=== PATIENT | male | born 1955 | race Caucasian/White ===

== ENCOUNTER → 2020-08-19 05:00 | Outpatient (CLI) | payer BC, SELFPAY ==
[2020-08-19 19:23] LABS: SARS-CoV-2 RNA PCR Negative
== END ==
PROVIDERS: PCP Family Medicine; Visit Provider Internal Medicine Gastroenterology
DX: Z01.812 Encounter for preprocedural laboratory examination (principal); Z20.822 Contact with and (suspected) exposure to COVID-19
CPT/HCPCS: C9803; U0003; U0005

== ENCOUNTER 2020-08-22 01:59 | Day surgery (SDC) | payer BC, SELFPAY ==
[2020-08-15 11:34] VITALS: BMI 30.7
[2020-08-22 07:11] VITALS: BP 131/82; PULSE 53; RESP 20; TEMP 36.3; O2SAT 100; BMI 30.3
[2020-08-22] MEDS: LACTATED RINGERS 1,000 ML 150 ML IV CONT (07:29)
--- NOTE | 2020-08-22 07:37 | WPDANESEPPF ---
Anes - Initial Pre Proc Eval Procedure: Operation Date: 08/22/20 08:15 Proposed Procedures p Colonoscopy - Jelani Martinez MD Date/Time: 08/22/20 07:37 Surgeon: Jelani Martinez MD Pre Op Diagnosis: blood in stool Patient Data Age: 65 Gender: M Height: 5 ft 11 in Weight: 98.6 kg Last Vital Signs Temp 97.3 F L 08/22/20 07:11 Pulse 53 L 08/22/20 07:11 Resp 20 08/22/20 07:11 BP 131/82 08/22/20 07:11 Pulse Ox 100 08/22/20 07:11 Allergies Allergy/AdvReac Type Severity Reaction Status Date / Time No Known Allergies Allergy Verified 08/22/20 07:09 Home Medications Medication Instructions Recorded Confirmed Type Adults Multivitamin 1 tab-cap PO DAILY 08/15/20 08/15/20 History ascorbic acid (vitamin C) 500 mg PO DAILY 08/15/20 08/15/20 History clopidogrel 75 mg PO DAILY 08/15/20 08/22/20 History losartan 100 mg PO DAILY 08/15/20 08/15/20 History metoprolol succinate 50 mg PO BID 08/15/20 08/22/20 History sildenafil (pulm.hypertension) 20 mg PO PRN PRN 08/15/20 08/15/20 History simvastatin 20 mg PO DAILY 08/15/20 08/15/20 History Patient hx anesthesia problems: none Family hx anesthesia problems: none PMFSH Past Medical History Medical History (Updated 08/22/20 @ 07:37 by Hank Ramos MD) CAD (coronary artery disease) Hyperlipidemia Surgical History Surgical History (Updated 08/22/20 @ 07:37 by Hank Ramos MD) Stented coronary artery Social History Social History (System 08/15/20 @ 12:22 by Sherry Martinez) Years smoked: 15 Smoking status: Former smoker Tobacco type: cigars Alcohol intake: current Drinks per week: 4 Substance use: never Substance use type: does not use Living arrangements: with family Spiritual care concerns: No Anes - Eval Final PreProcedure Day of Procedure 08/22/20 07:37 Patient weight: overweight Heart: bradycardia Lungs: clear to auscultation Airway: Mallampati scale class II Neurological: alert and oriented Last oral intake: >/= 8 hours ASA classification: III Emergent: no Anesthetic plan: proceed Anesthesia type and monitoring: general GIVS and standard monitoring Informed Consent: The patient's anesthetic plan and its attendant risks and benefits were discussed with the patient/family/POA. Questions were solicited and answers provided to the satisfaction of the patient/family/POA.
--- NOTE | 2020-08-22 08:09 | PM.HPGS ---
History of Present Illness History of Present Illness Consent: Risks, benefits, and alternatives have been discussed and questions answered. Patient agrees to proceed with procedure. Chief complaint: blood in stool Narrative: Levi Aaron Jr. is a 65 year old male who had BRBPR but now normal BM's, last colonoscopy 10 years ago. Review of Systems Constitutional: Constitutional: Denies headache(s) and Denies weakness Eyes: Eyes: Denies blurry vision ENT: Reports Normal hearing present, Denies headache(s) and Denies neck pain Cardiovascular: Cardiovascular: Denies chest pain and Denies dyspnea Respiratory: Respiratory: Denies dyspnea Gastrointestinal: Gastrointestinal: Reports no additional gastrointestinal complaints Genitourinary: Genitourinary: Denies dysuria Musculoskeletal: Musculoskeletal: Denies neck pain Integumentary/Breasts: Skin/Breast: Denies dry skin Neurologic: Reports Normal hearing present, Denies headache(s) and Denies weakness Psychiatric: Psychiatric: Denies anxiety Endocrine: Endocrine: Denies change in body appearance Hematologic/Lymphatic: Hematologic/Lymphatic: Denies easy bleeding Allergic/Immunologic: Allergic/Immunologic: Denies urticaria PMF Past Medical History Medical History (Updated 08/22/20 @ 08:10 by Jelani Martinez MD) Blood in stool CAD (coronary artery disease) Hyperlipidemia Surgical History Surgical History (Updated 08/22/20 @ 07:37 by Hank Ramos MD) Stented coronary artery Social History Social History (System 08/15/20 @ 12:22 by Sherry Martinez) Years smoked: 15 Smoking status: Former smoker Tobacco type: cigars Alcohol intake: current Drinks per week: 4 Substance use: never Substance use type: does not use Living arrangements: with family Spiritual care concerns: No Meds Home Medications and Allergies Home Medications Medication Instructions Recorded Confirmed Type Adults Multivitamin 1 tab-cap PO DAILY 08/15/20 08/15/20 History ascorbic acid (vitamin C) 500 mg PO DAILY 08/15/20 08/15/20 History clopidogrel 75 mg PO DAILY 08/15/20 08/22/20 History losartan 100 mg PO DAILY 08/15/20 08/15/20 History metoprolol succinate 50 mg PO BID 08/15/20 08/22/20 History sildenafil (pulm.hypertension) 20 mg PO PRN PRN 08/15/20 08/15/20 History simvastatin 20 mg PO DAILY 08/15/20 08/15/20 History Allergies Allergy/AdvReac Type Severity Reaction Status Date / Time No Known Allergies Allergy Verified 08/22/20 07:09 Vital Signs Vital Signs - 24 hr 08/22/20 07:11 Temperature 97.3 F L Pulse Rate 53 L Respiratory Rate 20 Blood Pressure 131/82 Pulse Oximetry 100 Exam Const: General: comfortable and no acute distress HENMT: General nose exam: Normal nares present Eyes: General: appearance normal, both eyes and all related structures Neck: Neck: no JVD Resp: Auscultation: clear to auscultation bilaterally Cardio: Rate: regular rate Rhythm: regular rhythm GI: Inspection: non-distended GI Palp: Yes Soft to palpation Skin: General skin exam: normal color Neuro: General: gait normal Speech: normal speech Extrem: General: normal to inspection Psych: Mental Status: mental status grossly normal Assessment and Plan Assessment and plan (1) Blood in stool: Code(s): K92.1 - Melena Status: Acute Assessment and Plan: colonoscopy
[2020-08-22 08:29] VITALS: BP 85/59; PULSE 56; RESP 21; O2SAT 94
[2020-08-22 08:39] VITALS: BP 95/71; PULSE 51; RESP 20; O2SAT 93
[2020-08-22 08:49] VITALS: BP 115/76; PULSE 50; RESP 20; O2SAT 96
== END 2020-08-22 09:00 | disposition home or self-care (01) ==
PROVIDERS: PCP Family Medicine; Visit Provider Internal Medicine Gastroenterology
PROC: 0DJD8ZZ Inspection of Lower Intestinal Tract, Via Natural or Artificial Opening Endoscopic (ICD-10-PCS; CPT 45378; principal; 2020-08-22 08:15)
DX: Z12.11 Encounter for screening for malignant neoplasm of colon (principal); K92.1 Melena; K64.8 Other hemorrhoids; I25.10 Atherosclerotic heart disease of native coronary artery without angina pectoris; E78.5 Hyperlipidemia, unspecified; Z79.02 Long term (current) use of antithrombotics/antiplatelets; Z95.5 Presence of coronary angioplasty implant and graft; Z87.891 Personal history of nicotine dependence
CPT/HCPCS: 45378; C9803; J2704; J7120; U0003; U0005

== ENCOUNTER 2021-07-31 06:25 | Observation (INO) | payer BC, SELFPAY ==
[2021-07-31] VITALS (14 sets, daily range): BP systolic 123–142; BP diastolic 77–92; PULSE 44–55; RESP 10–18; TEMP 36.3–37.1; O2SAT 97–100; BMI 31.1
--- NOTE | ~2021-07-31 | XR_ITS ---
EXAMINATION: XR chest 2V DATE: 07/31/2021 07:02 INDICATION: Chest pain TECHNIQUE: PA and lateral views of the chest were obtained. COMPARISON: Chest radiograph dated 09/25/11 FINDINGS: Linear suture line and minimal associated scarring at the right midlung zone. Calcified nodule at the right lung base and calcified right hilar lymph nodes consistent with old granulomatous disease. Mor e subtle nipple shadows project along the inferior margin of the bilateral anterior fifth ribs. No ne w airspace opacities, pulmonary edema, pleural effusion or pneumothorax. The cardiomediastinal silhou ette is normal. Mild thoracic spondylosis. Distal left clavicle resection. IMPRESSION: 1. No acute cardiopulmonary disease. Reviewed, dictated and finalized at location A.
--- NOTE | 2021-07-31 06:37 | ECG_ITS ---
Measurements Intervals [place] Rate: 43 P: 30 OK: 145 QRS: 4 QRSD: 104 T: 84 QT: 473 QTc: 400 Interpretive Statements SINUS BRADYCARDIA WITH NONCONDUCTED PAC NONSPECIFIC T-WAVE ABNORMALITY NO PREVIOUS ECG AVAILABLE FOR COMPARISON Electronically Signed On 07-31-2021 14:22:00 CDT by Jadon Lozano M.D.
[2021-07-31] MEDS: ASPIRIN 81 MG CHEWABLE TABLET 324 MG PO (06:41)
[2021-07-31 07:04] LABS: Basophils Absolute Auto 0.1 K/mm3 (0.0-0.1); Basophils Percent Auto 1.1 % (0.2-1.2); Eosinophils Absolute Auto 0.2 K/mm3 (0-0.3); Eosinophils Percent Auto 2.6 % (0-4.4); Hematocrit 41.8 % (42.0-52.0); Hemoglobin 14.7 g/dL (14.0-18.0); Immature Granulocyte Absolute 0.02 K/mm3 (0.00-0.031); Immature Granulocyte Percent A 0.3 % (0-0.5); Lymphocytes Absolute Auto 2.03 K/mm3 (0.9-3.2); Lymphocytes Percent Auto 27.3 % (18.3-44.2); Mean Corpuscular HGB Conc 35.2 g/dl (32-36); Mean Corpuscular Hemoglobin 30.4 pg (26-34); Mean Corpuscular Volume 86.4 fl (80-100); Mean Platelet Volume 9.7 fl (7.4-10.4); Monocytes Absolute Auto 0.7 K/mm3 (0.1-0.6); Monocytes Percent Auto 9.7 % (2.6-8.5); Neutrophils Absolute Auto 4.4 K/mm3 (1.3-6.7); Platelet Count Result 212 k/mm3 (150-375); Red Blood Count 4.84 M/mm3 (4.6-6.20); Red Cell Distribution Width 12.6 % (11.5-14.5); White Blood Count 7.4 K/mm3 (4.5-10.0)
[2021-07-31 07:13] LABS: Alanine Aminotransferase 25 U/L (4-50); Alkaline Phosphatase 59 U/L (38-126); Anion Gap 10 mmol/L (8-16); Aspartate Amino Transferase 29 U/L (17-59); Bilirubin,Total 1.3 mg/dL (0.2-1.3); Blood Urea Nitrogen 24 mg/dL (9-20); Calcium 8.8 mg/dL (8.4-10.2); Carbon Dioxide 23 mmol/L (22-30); Chloride 107 mmol/L (98-107); Estimated Glomerular Filt Rate > 60; Glucose 95 mg/dL (65-110); Lipase 146 U/L (23-300); Potassium 4.3 mmol/L (3.4-5.0); Sodium 140 mmol/L (137-145)
[2021-07-31 07:24] LABS: Troponin I < 0.012 ng/mL (0.000-0.034)
[2021-07-31 07:33] LABS: INR 1.2; Partial Thromboplastin Time 27.6 SECONDS (22.3-36.8); Prothrombin Time 14.3 Seconds (11.1-14.7)
--- NOTE | 2021-07-31 08:04 | ED.CHESTPAIN ---
HPI - Chest Pain General Chief Complaint: Chest Pain Stated Complaint: chest pain Time Seen by Provider: 07/31/21 07:01 Source: patient and RN notes reviewed Mode of arrival: ambulatory Limitations: no limitations History of Present Illness HPI narrative: This is a 66 year old male with history of CAD s/p stent, hypertension, and hyperlipidemia who presents for evaluation of left lateral chest pain. He developed left chest pain 2 to 3 am this morning, and it woke him up from his sleep. He states his pain does not radiate and at its maximum intensity he rates 2/10. He does report pain feels similar to when he had stents placed 13 years ago. He denies associated nausea, vomiting, cough, fever, sob or diaphoresis. He took nitroglycerin at home and it resolved his pain. His marine engine machinist is Dr. Anh Lee but she is retiring. He needs to establish care with new marine engine machinist. Related Data Home Medications Medication Instructions Recorded Confirmed Adults Multivitamin 1 tab-cap PO DAILY 08/15/20 07/31/21 ascorbic acid (vitamin C) 500 mg PO DAILY 08/15/20 07/31/21 clopidogrel 75 mg PO HS 08/15/20 07/31/21 losartan 100 mg PO DAILY 08/15/20 07/31/21 metoprolol succinate 50 mg PO Q12H 08/15/20 07/31/21 sildenafil (pulm.hypertension) 20 mg PO PRN PRN 08/15/20 07/31/21 simvastatin 20 mg PO HS 08/15/20 07/31/21 nitroglycerin 0.4 mg SUBLINGUAL Q5M PRN 07/31/21 07/31/21 omeprazole 20 mg PO EVERY OTHER DAY 07/31/21 07/31/21 Allergies Allergy/AdvReac Type Severity Reaction Status Date / Time No Known Allergies Allergy Verified 07/31/21 06:35 Review of Systems Review of Systems: All systems reviewed & are unremarkable except as noted in HPI and below PMFSH Past Medical History Medical History (Updated 07/31/21 @ 19:07 by Merline Reyes MD) CAD (coronary artery disease) HTN (hypertension), benign Hyperlipidemia SVT (supraventricular tachycardia) Surgical History Surgical History (Updated 07/31/21 @ 10:03 by Joshua Foley MD) Hx of arthroscopic knee surgery 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 Also smoked Cigars. Drinks 2-3 drinks per week. No hx of drug use. Lives at home with his . Nominates his to be the individual would make medical decisions for him if he is unable. He is a full code. Smoking packs per day: 1 Smoking cigarettes per day: 20.0 Years smoked: 10 Smoking pack-years: 10.00 Smoking status: Former smoker Tobacco type: cigarettes and cigars Additional smoking assessment comments: PT ALSO SMOKED 5-6 CIGARS/DAY Alcohol intake: current Drinks per week: 3 Substance use: never Substance use type: does not use Spiritual care concerns: No Exam Const: General: no acute distress and alert Orientation/consciousness: patient oriented x3 Eyes: EOM: EOMs intact bilaterally Chest: Chest palpation & inspection: normal inspection of the chest Resp: Effort & Inspection: normal respiratory effort and no retractions Auscultation: clear to auscultation bilaterally Cardio: Rate: regular rate Rhythm: regular rhythm Heart sounds: no murmurs GI: GI Palp: Yes Soft to palpation, No Tenderness to palpation present (GI) and No Guarding due to palpation present (GI) Auscultation: normal bowel sounds Neuro: General: patient oriented x3, moves all extremities and CN's II-XI intact bilaterally Psych: Menta
--- NOTE | 2021-07-31 09:42 | PM.IMHP ---
H&P: HPI History of Present Illness Date/Time: PATIENT IS ADMITTED UNDER OBSERVATION STATUS 07/31/21 09:42 Chief Complaint: Cheat pain Narrative: 66yo male with HTN, HLD and CAD here for chest pain. Around 2-3 a.m. this morning, patient was awakened by left-sided chest pain that he describes as ?pressure?. Pain did not worsen or improve but a few hours later he did take a nitroglycerin with slight benefit. He rates the pain 2/10. Chest pain is still present currently at 1/10. Denies any shortness of breath, nausea, vomiting or abdominal pain. No cough, fever or chills. The pain is not pleuritic or palpable. Does not radiate. He was working in the yard yesterday but did not do anything strenuous. His last stress test was negative about 2 years ago. He denies sleep apnea. He does snore but his is available and states that she has not seen any apneic spells. He has a history of coronary disease and had 5 stents placed over about a year in 2008 which was his last heart catheterization. He also has a history of SVT and sees an coal chemist for this. He had a athletic monitor about a year or so ago. He is aware that his heart rate runs low. This chest pain does feel very similar to the time he had chest pain when he was diagnosed with coronary disease requiring stents. Because of the persistent pain, patient presented to the emergency room for evaluation. In the Emergency room patient is bradycardic with the heart rate in the 40s. Blood pressure is 135/92. Chest x-ray was clear. Lab work was unrevealing. Troponin was negative. Lipase was normal. EKG showed sinus bradycardia rate of 43, PVC and ST T wave changes noted in the high lateral leads. Patient was given aspirin. He was admitted for further care. 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 Also smoked Cigars. Drinks 2-3 drinks per week. No hx of drug use. Lives at home with his . Nominates his to be the individual would make medical decisions for him if he is unable. He is a full code. Smoking packs per day: 1 Smoking cigarettes per day: 20.0 Years smoked: 10 Smoking pack-years: 10.00 Smoking status: Former smoker Tobacco type: cigarettes and cigars Additional smoking assessment comments: PT ALSO SMOKED 5-6 CIGARS/DAY Alcohol intake: current Drinks per week: 3 Substance use: never Substance use type: does not use Spiritual care concerns: No Meds Home Medications and Allergies Home Medications Medication Instructions Recorded Confirmed Type Adults Multivitamin 1 tab-cap PO DAILY 08/15/20 07/31/21 History ascorbic acid (vitamin C) 500 mg PO DAILY 08/15/20 07/31/21 History clopidogrel 75 mg PO HS 08/15/20 07/31/21 History losartan 100 mg PO DAILY 08/15/20 07/31/21 History metoprolol succinate 50 mg PO Q12H 08/15/20 07/31/21 History sildenafil (pulm.hypertension) 20 mg PO PRN PRN 08/15/20 07/31/21 History simvast
--- NOTE | 2021-07-31 10:05 | PC.NURSE ---
Fax SBAR sent to IMU at [phone] RN tried to call report was told would return this RN call RN called back on hold 4:36 minutes will attempt to call again.
[2021-07-31 10:11] LABS: Troponin I < 0.012 ng/mL (0.000-0.034)
--- NOTE | 2021-07-31 10:32 | ADMGEN ---
This patient, Levi Aaron Jr., was admitted to IMU Room 232-01. Patient/family oriented to hospital policies and general routines including ID bracelet, bed and alarms, visiting hours, pain management, procedures, bathroom and other care routines, personal items, smoking policy, room service/diet, and visiting hours. Information on how to activate the Rapid Response Team has been discussed. Patient/Family are encouraged to report perceived risks to care and to ask questions if they do not understand what they are told or what they should do.
[2021-07-31 13:04] LABS: Troponin I < 0.012 ng/mL (0.000-0.034)
--- NOTE | 2021-07-31 13:50 | PM.CNCAR ---
Assessment and Plan Additional Plan This is a 66-year-old man with a long history of coronary artery disease remote history of percutaneous revascularization also reports a history of symptomatic SVT which he treats with metoprolol and vagal maneuvers. The symptoms with which he presents are atypical left-sided inframammary and left lateral chest discomfort with no associated symptoms. Electrocardiogram shows no evidence of acute ischemia/injury and his troponin levels are normal x3 sets. In my opinion he is safe to be discharged for follow-up as an outpatient. His physician at [facility] is retiring but he does express a preference to continue to follow-up at that institution. As such we will not give him an appointment in our office here. He can be discharged from my perspective. Jadon Lozano MD [facility] History of Present Illness History of Present Illness Consult date/time: 07/31/21 13:50 Consult reason: chest pain Reason For Visit: Chest pain Narrative: This is a 66-year-old man who has coronary artery disease am seeing him in consultation this afternoon at the request of the hospitalist after he was admitted for observation/rule out ACS. He was in his usual state of good health when he was awakened at about 3:00 a.m. in the morning with some chest discomfort. He describes this as a dull aching sensation inferior and lateral to the left breast area. He did not describe any radiation of the symptoms any other location there was no associated shortness of breath diaphoresis nausea or vomiting. Because of his history of coronary disease he came to this hospital's emergency room where he was evaluated and admitted. His electrocardiogram does not show any acute ST or T-wave changes. He is in sinus bradycardia with occasional PVCs. His troponin levels were normal in the emergency room and have remained so x3 sets. Patient was sleeping very comfortably in bed when I awakened him to see him in consultation he offers no other complaints. 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 He plans on transitioning to 1 of her partners at that office. He also has been seeing 1 of the electrophysiologists over there in consultation because of supraventricular tachycardia. His PCP is here in [place]. Review of Systems Constitutional: Constitutional: Reports no additional constitutional complaints Eyes: Eyes: Reports no additional eye complaints ENT: Reports system reviewed and no additional complaints, except as documented Cardiovascular: Cardiovascular: Reports as per HPI Respiratory: Respiratory: Reports no additional respiratory complaints Gastrointestinal: Gastrointestinal: Reports no additional gastrointestinal complaints Musculoskeletal: Musculoskeletal: Reports no additional musculoskeletal complaints Integumentary/Breasts: Skin/Breast: Reports system reviewed and no additional complaints, except as docu Neurologic: Reports system reviewed and no additional complaints, except as documented Endocrine: Endocrine: Reports no additional endocrine complaints Hematologic/Lymphatic: Hematologic/Lymphatic: Reports no additional hematologic/lymphatic complaints Allergic/Immunologic: Allergic/Immunologic: Reports no additional allergic/immunologic complaints PMFSH Past Medical History Medical History (Updated 07/31/21 @ 10:06 by Joshua Foley MD) CAD (coronary artery disease) HTN (hypertension), benign Hyperlipidemia SVT (supraventricular tachycardia) Surgical History Surgical History (Updated 07/31/21 @ 10:03 by Joshua Foley MD) Hx of arthroscopic knee surgery 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
--- NOTE | 2021-07-31 16:23 | PM.DS ---
DS: Admitting Diagnosis Discharge Date 07/31/21 Admitting Diagnosis Chest pain DS: Discharge Diagnosis Discharge Diagnosis (1) Chest pain: Code(s): R07.9 - Chest pain, unspecified Status: Acute (2) Hyperlipidemia: Code(s): E78.5 - Hyperlipidemia, unspecified Status: Inactive (3) HTN (hypertension), benign: Code(s): I10 - Essential (primary) hypertension Status: Acute (4) SVT (supraventricular tachycardia): Code(s): I47.1 - Supraventricular tachycardia Status: Acute DS: Summary Hospital Course Reason for hospitalization: 66yo male with HTN, HLD and CAD here for chest pain. Please see H&P for details. Hospital Course: Patient presents to the emergency complaints of chest pain. In the Emergency room patient is bradycardic with the heart rate in the 40s. Blood pressure was 135/92. Chest x-ray was clear. Lab work was unrevealing. Troponin x 3 was negative. Lipase was normal. EKG showed sinus bradycardia rate of 43, PVC and ST T wave changes noted in the high lateral leads. Patient was given aspirin. He was admitted to the IMU for further care. Patient was seen by Cardiology. Cardiology felt the patient was safe for discharge and can follow up as an outpatient. No further inpatient testing was required. Patient had resolution of his symptoms. He overall did well and was able to be discharged home on 07/31/2021. Status at Discharge Cognitive/behavioral status at discharge: Stable Time Spent with Patient Time attestation: Total time spent providing and/or coordinating discharge services: 45 minutes Time spent: Greater than 30 minutes Exam Narrative: AF 98.2 115/76 50 20 96% ra Gen - well-nourished, well-developed male in no acute respiratory distress who is nontoxic-appearing lying semi recumbent in bed HEENT - normocephalic. Atraumatic. Pupils equal round and reactive. Extraocular motions intact. Sclera clear and anicteric. Nares patent. Oropharynx was clear. No oral lesions. Moist mucous membranes. Tongue was midline. Palate ravi symmetrically. No facial asymmetry. Neck - neck was supple. No dominant adenopathy, thyromegaly or masses. 2+ carotid upstrokes without bruits. Chest - lungs are clear to auscultation bilaterally. No wheezes or crackles. CV - heart was bradycardic and regular with occasional extra beat. S1-S2. No murmurs gallops or rubs. Abd - abdomen was soft. Nontender. Nondistended. Positive bowel sounds. No organomegaly or masses. Ext - no clubbing, cyanosis or edema. 2+ DP pulses bilaterally. Neuro - patient is alert and oriented x4. Strength is 5/5 in both upper and lower extremities. Cranial nerves 2-12 are intact. Speech is clear. Psych - normal mood and affect. Patient is pleasant and cooperative. Skin - warm and dry. No rashes noted. DS: Data Data Completed and Pending Labs on day of discharge: Labs from last 24 hours 07/31/21 07/31/21 07/31/21 12:33 09:42 06:54 WBC RBC Hgb Hct MCV MCH MCHC RDW Plt Count MPV Immature Gran % (Auto) Neut % (Auto) Lymph % (Auto) [place] % (Auto) Eos % (Auto) Baso % (Auto) Lymph # (Auto) [place] # (Auto) Eos # (Auto) Baso # (Auto) Abs Immat Gran (auto) Absolute Neuts (auto) Absolute Nucleated RBC Nucleated RBC % PT INR APTT Sodium 140 Potassium 4.3 Chloride 107 Carbon Dioxide 23 Anion Gap 10 BUN 24 H Creatinine 0.80 Estim Creat Clear Calc Not Reportable Estimated GFR > 60 Glucose 95 Calcium 8.8 Total Bilirubin 1.3 AST 29 ALT 25 Alkaline Phosphatase 59 Troponin I < 0.012 < 0.012 < 0.012 Total Protein 7.0 Albumin 4.0 Lipase 146 07/31/21 07/31/21 06:54 06:54 WBC 7.4 RBC 4.84 Hgb 14.7 Hct 41.8 L MCV 86.4 MCH 30.4 MCHC 35.2 RDW 12.6 Plt Count 212 MPV 9.7 Immature Gran % (Auto) 0.3 Neut
== END 2021-07-31 17:12 | disposition home or self-care (01) ==
LOC: ANHED 07:17 → ANHIMU 09:52
PROVIDERS: Emergency Medicine; Admitting Provider Internal Medicine; Emergency Provider General Practice; PCP Family Medicine; Visit Provider Internal Medicine
DX: R07.9 Chest pain, unspecified (principal); I25.10 Atherosclerotic heart disease of native coronary artery without angina pectoris; I10 Essential (primary) hypertension; E78.5 Hyperlipidemia, unspecified; I47.1 Supraventricular tachycardia; Z95.5 Presence of coronary angioplasty implant and graft; Z79.02 Long term (current) use of antithrombotics/antiplatelets; Z90.2 Acquired absence of lung [part of]; Z87.891 Personal history of nicotine dependence
CPT/HCPCS: 36415; 71046; 80053; 83690; 84484; 85025; 85610; 85730; 93005; 99285; A9270; G0378

== ENCOUNTER 2023-02-25 07:04 | Outpatient (CLI) | payer MEDICARE, OTHER, SELFPAY ==
--- NOTE | ~2023-02-25 | US_ITS ---
EXAMINATION: US aorta [facility] DATE: 02/25/2023 07:41 INDICATION: Abdominal aortic aneurysm screening in a former smoker TECHNIQUE: Grayscale, color Doppler, and pulsed Doppler images of the aorta and common iliac arteries were obtained. COMPARISON: None. FINDINGS: The proximal aorta measures 2.8 cm. The mid aorta measures 2.4 cm. The distal aorta measures 2.1 cm. The right common iliac artery measures 1.4 cm. The left common iliac artery measures 1.4 cm. IMPRESSION: 1. Normal caliber abdominal aorta. No aneurysm. Reviewed, dictated and finalized at location A.
== END 2023-02-25 07:05 | disposition home or self-care (01) ==
LOC: ANHIMG 07:06
PROVIDERS: PCP Family Medicine; Visit Provider Internal Medicine Cardiovascular Disease
DX: Z87.891 Personal history of nicotine dependence (principal)
CPT/HCPCS: 76706

== ENCOUNTER 2023-04-10 10:13 | Outpatient (CLI) | payer MEDICARE, OTHER, SELFPAY ==
--- NOTE | ~2023-04-10 | XR_ITS ---
EXAMINATION: XR hand LT min 3V INDICATION: Left hand pain TECHNIQUE: Three views of the left hand are obtained. COMPARISON: None available FINDINGS: Bone alignment is normal. There is no fracture. There is mild osteoarthritis of the triscap he and first carpometacarpal joints as well as in multiple interphalangeal joints. The soft tissues a re unremarkable. IMPRESSION: 1. Polyarticular osteoarthritis without acute osseous abnormality. Reviewed, dictated and finalized at location F. Y ROLLING MACHINE OPERATOR
== END 2023-04-10 10:14 | disposition home or self-care (01) ==
PROVIDERS: PCP Family Medicine; Visit Provider Plastic Surgery
DX: M18.12 Unilateral primary osteoarthritis of first carpometacarpal joint, left hand (principal); M19.042 Primary osteoarthritis, left hand
CPT/HCPCS: 73130

== ENCOUNTER 2023-08-06 08:37 | Outpatient (CLI) | payer MEDICARE, OTHER, SELFPAY | END 2023-08-06 08:38 | disposition home or self-care (01) | LOC: ANHAUDIO 08:37 | PROVIDERS: PCP Family Medicine; Visit Provider Physician Assistant | DX: H90.3 Sensorineural hearing loss, bilateral (principal) | CPT/HCPCS: 92557; 92567 ==

== ENCOUNTER 2023-10-08 08:48 | Outpatient (CLI) | payer MEDICARE, OTHER, SELFPAY ==
--- NOTE | 2023-10-21 15:45 | WPDSLEEPSTUD ---
Sleep Study Date of Study: 10/08/23 Ordering Provider: Rica Arriaga, COMMERCIAL CONSTRUCTION PROJECT MANAGER Interpreting Physician: Yumiko Cantrell DO Sleep Study Type: Polysomnogram Height: 1.8 m Weight: 92.986 kg Body Mass Index: 28.5 Neck Circumference (inches): 17 [place]: 1 Reason for Sleep Study Cardiac arrhythmia Sleep History The patient is a 68-year-old male with coronary artery disease, paroxysmal supraventricular tachycardia, hypertension, dyslipidemia, history of tobacco use and previously diagnosed sleep apnea in 08/2011 that had a sleep study ordered by his service desk specialist for evaluation of sleep apnea. He has not been wearing his mandibular device regularly. The patient denies awakening from sleep short of breath. He denies awakening at night with heartburn, belching or cough. He occasionally snores but is rarely loud enough others complain. He rarely has trouble sleeping when he has a cold. He denies waking up gasping for air throughout the night. He denies having breathing problems at night observed by himself or others. He denies sweating excessively at night. He frequently has heart palpitations or irregular heartbeats during the night. He denies falling asleep during the day and while driving. He denies sleep paralysis, cataplexy and hypnagogic / hypnopompic hallucinations. He denies having trouble at school or work due to sleepiness. He denies feeling afraid of going to sleep. He denies having nightmares. He occasionally remembers his dreams. He denies having thoughts racing through his mind. He denies feeling sad, depressed or anxious. He denies having muscular tension. He denies noticing parts of his body jerk. He denies kicking during the night. He denies having crawling and aching feelings in his legs and denies having leg pain during the night. He denies grinding his teeth during sleep and denies awakening with morning jaw pain. He is occasionally bothered by pain during the day but never awakened by pain during the night. He frequently wakes up feeling stiff in the morning. He denies waking up with sore or achy muscles. He denies waking up with pain in the neck, spine or other joints. He goes to bed at 10:00 p.m. on weekdays and between 9-10 p.m. on the weekends. He is able to fall asleep within 10 minutes. He will only wake up at night if he has episodes of SVT. He wakes up between 6-7 a.m. on weekdays and at 7:00 a.m. on the weekends. He typically gets 7 8 hours of sleep per night. He stays in bed less than 5 minutes after waking up in the morning. He currently lives with his . He denies consuming any caffeinated beverages within 2 hours of bedtime. He denies engaging in physical exercise before bedtime. He will watch television before falling asleep. He denies taking naps in afternoon or the evening. He consumes 1 cup of coffee in the morning. He quit smoking cigarettes 20 years ago. He will consume 3 oz of an alcoholic beverage a few times per week. He denies recreational drug use. 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
[2023-10-21 16:00] VITALS: BMI 28.5
== END 2023-10-09 07:11 | disposition home or self-care (01) ==
LOC: ANHCSM 08:49
PROVIDERS: PCP Family Medicine; Visit Provider Nurse Practitioner Adult Health
DX: F51.8 Other sleep disorders not due to a substance or known physiological condition (principal)
CPT/HCPCS: 95810

== ENCOUNTER 2024-09-03 00:54 | Day surgery (SDC) | payer MEDICARE, OTHER, SELFPAY ==
[2024-09-02 10:35] VITALS: BMI 29.3
[2024-09-03] VITALS (16 sets, daily range): BP systolic 113–144; BP diastolic 54–94; PULSE 43–55; RESP 12–22; TEMP 36.1; O2SAT 95–97; BMI 28.9
--- OUTSIDE RECORDS SUMMARY | 2024-09-03 00:59 | XMS_ITS | Referral Summary ---
Author Organization [facility] D Address [address] [place] [address] Care Team Providers Care Counter Tender Name Role Phone Cristino Nunez MD Primary Care Provider [phone] Encounters Date Type Department Care Team Description 08/20/2024 Telephone [facility] Cardiology [employer] [facility] [address] [place] [phone] Mario Dietrich MD 08/20/2024 2:15 PM CDT Office Visit [facility] Cardiology [address] [facility] [address] [place] [phone] Mario Dietrich MD Coronary artery disease involving [place] coronary artery of [place] heart without angina pectoris (Primary Dx); Paroxysmal SVT (supraventricular tachycardia); Essential hypertension; Pure hypercholesterolemia; BILLIE (obstructive sleep apnea) 08/14/2024 Telephone [facility] Cardiology [address] [facility] [address] [place] [phone] Mario Dietrich MD from Last 3 Months Allergies No known active allergies Medications multivitamin with minerals tablet take 1 Tablet by oral route every day with food 0 0 4 Active nitroglycerin (NITROSTAT) 0.[address] 1 TAB UNDER TONGUE IF NEEDED FOR CHEST PAIN EVERY 5 MINS UP TO 3 DOSES.. CALL 911 IF NO RELIEF 25 tablet 0 Active sildenafiL, pulm.hypertensio n, (REVATIO) 20 mg tablet 1 Active psyllium (METAMUCIL) 3.4 gram packet Take 1 packet by mouth 2 (two) times a day Active turmeric root extract 500 mg capsule Take 1 capsule by mouth daily Active glucosamine/luis enrique droitin/C/Luis A (GLUCOSAMINE 1500 COMPLEX ORAL) 4 Active losartan (COZAAR) 100 mg tablet Take 1 tablet (100 mg total) by mouth daily 60 tablet 3 5 Active simvastatin (ZOCOR) 20 mg tablet Take 1 tablet (20 mg total) by mouth nightly 60 tablet 3 5 Active clopidogreL (PLAVIX) 75 mg tablet TAKE 1 TABLET BY MOUTH EVERY DAY 30 tablet 11 5 Active B6/folic/B12/cof fee/phosphatid (NEURIVA PLUS ORAL) Take by mouth Active nebivoloL (BYSTOLIC) 5 mg tabletIndication s:Coronary artery disease involving [place] coronary artery of [place] heart without angina pectoris,Paroxys mal SVT (supraventricula r tachycardia),Ess ential hypertension Take 1 tablet (5 mg total) by mouth daily 30 tablet 11 5 08/21/19 26 Active ibuprofen 200 mg tab/cap Take 1 tablet/capsul e (200 mg total) by mouth senior receptionist before breakfast 08/21/19 25 Discontin ued(Thera py completed ) tadalafiL (CIALIS) 5 mg tablet tadalafil 5 mg tablet TAKE 1 TABLET BY MOUTH ONCE DAILY NEEDED 08/21/19 25 Discontin ued(Alter dio therapy) Active Problems Problem Noted Date Diagnosed Date Asymmetrical sensorineural hearing loss 11/20/19 24 Dysfunction of right eustachian tube 11/20/2023 Paroxysmal atrial fibrillation 12/28/2021 Paroxysmal SVT (supraventricular tachycardia) BILLIE (obstructive sleep apnea) 12/28/2021 Former smoker 12/28/2021 Chronic pain of left thumb 08/12/2020 Primary osteoarthritis of fi rst carpometacarpal joint of left hand 08/12/2020 Coronary artery disease invo lving [place] coronary artery of [place] heart without angina pectoris 10/29/2016 Assessment & Plan (09/16/2020 11:42 AM CDT): No symptoms of myocardial ischemia. Continue clopidogrel. Assessment & Plan (07/09/2019 12:33 PM SET UP AND CHARGER): Asymptomatic. He is on clopidogrel which he should continue. He is taking it every other day, and I think this is satisfactory. Assessment & Plan (11/06/2018 6:06 PM CDT): No symptoms of myocardial ischemia. Continue clopidogrel. Assessment & Plan (10/09/2018 11:12 AM CDT): No symptoms to suggest myocardial ischemia. Normal myocardial perfusion study in 2016. Assessment & Plan (10/31/2017 3:43 PM CDT): Doing well, with no symptoms of myocardial ischemia. Continue dual anti-platelet therapy. Assessment & Plan (10/29/2016 7:21 PM CDT): Asymptomatic. Continue anti-platelet therapy. Essential hypertension 10/29/2016 Assessment & Plan (09/16/2020 11:42 AM CDT): Blood pressure is adequately controlled on current regimen. No change was made. Assessment & Plan (07/09/2019 12:33 PM SET UP AND CHARGER): Blood pressure is adequately controlled on current regimen. No change was made. Assessment & Plan (11/06/2018 6:06 PM CDT): Blood pressure is adequately controlled on current regimen. No change was made. Assessment & Plan (10/09/2018 11:13 AM CDT): Blood pressure is adequately controlled on current regimen. No change was made. Assessment & Plan (10/31/2017 3:43 PM CDT): Blood pressure is adequately controlled on current regimen. No change was made. Assessment & Plan (10/29/2016 7:21 PM CDT): Blood pressure is adequately controlled on current regimen. No change was made. Pure hypercholesterolemia 10/29/2016 Assessment & Plan (09/16/2020 11:43 AM CDT): On chronic lipid lowering therapy with good control. No changes made. Assessment & Plan (07/09/2019 12:34 PM SET UP AND CHARGER): On chronic lipid lowering therapy with good control. No changes made. Assessment & Plan (11/06/2018 6:07 PM CDT): On chronic lipid lowering therapy with good control. No changes made. Assessment & Plan (10/09/2018 11:13 AM CDT): On chronic lipid lowering therapy with good control. No changes made. Assessment & Plan (10/31/2017 3:43 PM CDT): On chronic lipid lowering therapy with good control. No changes made. Assessment & Plan (10/29/2016 7:22 PM CDT): On chronic lipid lowering therapy with good control. No changes made. Lung mass 10/12/2009 Immunizations Immunization Administration Dates Next Due Influenza, Quadrivalent, Spl it, Preservative Free, Intramuscular 02/28/2021 Social History Tobacco Use Types Packs/Day Years Used Date Smoking Tobacco: Former Cigarettes 0.3 14 0 05/20/1989 - 05/20/2003 Cigars Smokeless Tobacco: Never Tobacco Cessation:Counseling Given: Not Answered Alcohol Use Standard Drinks/Week Comments Yes 1 (1 standard drink = 0.6 oz pur e alcohol) 3x weekly AUDIT-C Answer Date Recorded Q1: How often do you have a drink containing alc ohol? 2-3 times a week 11/20/2023 Q2: How many drinks containi ng alcohol do you have on a typical day when you are drinking? 1 or 2 11/20/2023 Q3: How often do you have si x or more drinks on one occasion? Never 11/20/2023 Sex and Gender Information Value Date Recorded Sex Assigned at Not on file Legal Sex Male 11:29 PM SET UP AND CHARGER Gender Identity Male 10/10/2023 4:15 PM CDT Sexual Orientation Straight 10/10/2023 4: 15 PM CDT Last Filed Vital Signs Vital Sign Reading Time Taken Comments Blood Pressure 136/82 08/20/2024 3:32 PM CDT Pulse 60 08/20/2024 2:07 PM CDT Temperature 36.6 C (97.8 F) 08/26/2020 2:12 PM CDT Respiratory Rate 16 08/03/2021 2:17 PM CDT Oxygen Saturation 97% 08/20/2024 2:07 PM CDT Inhaled Oxygen Concentration - - Weight 96.5 kg (212 lb 12.8 oz) 08/20/2024 2:07 PM CDT Height 180.3 cm (5' 11 ) 08/20/2024 2:07 PM CDT Body Mass Index 29.68 08/20/2024 2:07 PM CDT Plan of Treatment Not on file Medical Devices Implanted Type Area Air Export Agent Device Identifier Shelf Expiration Date Model / Serial / Lot Cardiac Stent X 5 Stent Heart Procedures Procedure Name Priority Date/Time Associated Diagnosis Comments ELECTROCARDIOGRAM REPORT Routine 025 3:59 PM CDT Coronary artery disease involving [place] coronary artery of [place] heart without angina pectoris POCT LIPID PANEL Routine 08/20/2024 3:13 PM CDT Coronary artery disease involving [place] coronary artery of [place] heart without angina pectoris Paroxysmal SVT (supraventricular tachycardia) from Last 3 Months Results * Electrocardiogram Report (08/20/2024 3:59 PM CDT) Mario Dietrich MD ECG ORDERABLES Final Res ult * POCT lipid panel (08/20/2024 3:13 PM CDT) Cholesterol, POC 146 mg/dL Comment:GLU = 76 HDL, POC 29 mg/dL Triglycerides, POC 230 mg/dL LDL Cholesterol POC 71 mg/dL Chol/HDL Ratio, POC 2.4 Non-HDL Cholesterol, POC 117 mg/dL Cholesterol Total, POC 146 mg/dL Capillary blood 08/20/2024 3 :13 PM CDT Mario Dietrich MD POINT OF CARE TEST ORDERA BLES Final Result from Last 3 Months Insurance [facility] [employer] MEDIC[employer] Care Teams Counter Tender Relationship Specialty Start Date End Date Cristino Nunez MD [address] [place] [address] [place] [id number] PCP - General Family Medicine 10/31/17
--- OUTSIDE RECORDS SUMMARY | 2024-09-03 00:59 | XMS_ITS | Encounter Summary ---
Author Organization [facility] Healthcare Address [address] [place] [address] Care Team Providers Care Inspector Electromechanical Name Role Phone Cristino Nunez MD Primary Care Provider [phone] Encounter Details Date Type Department Care Team (Late st Contact Info) Description 08/14/2024 Telephone [facility] Cardiology [address] [place] [address] Mario Dietrich MD [address] [address] Social History Tobacco Use Types Packs/Day Years Used Date Smoking Tobacco: Former Cigarettes 0.3 14 0 05/20/1989 - 05/20/2003 Cigars Smokeless Tobacco: Never Alcohol Use Standard Drinks/Week Comments Yes 1 [...] on file Legal Sex Male 11:29 PM [employer] Gender Identity Male 10/10/2023 4:15 PM CDT Sexual Orientation Straight 10/10/2023 4 :15 PM CDT documented as of this encounter Miscellaneous Notes * Telephone Encounter - Randa Medina RN - 08/14/2024 10:10 AM CDT Spoke with pt, reviewed response below from [facility]. Pt verbalizes understanding. * Telephone Encounter - Randa Medina RN - 08/14/2024 9:08 AM CDT Spoke with pt, pt states that on Saturday night and last night he experienced some chest pain while sleeping. Pt states that Saturday the pain woke him up, last night he was already awake. Pt ratedpain at 2/10. Pt denies any pain now and no other symptoms. Pt has appt with [facility] next week, advisedpt to f/u as scheduled and go to the ER for any recurrence of chest pain. Pt verbalizes understanding. Pt wanted message forwarded to [facility] to see if he would order a troponin level. Will forward to [facility]. Please advise. * Telephone Encounter - Danica Tejada - 08/14/2024 8:35 AM CDT Patient is having chest pain and would like to be advised on what to do . Please call the patient [phone] documented in this encounter Plan of Treatment Not on file documented as of this encounter Visit Diagnoses Not on filedocumented in this encounter Care Teams Inspector Electromechanical Relationship Specialty Start Date End Date Cristino Nunez MD [address] [place] [id number] PCP - General Family Medicine 10/31/17 documented as of this encounter
--- OUTSIDE RECORDS SUMMARY | 2024-09-03 00:59 | XMS_ITS | Data Portability ---
Author Organization [place] - [facility] Main Office Address [address] [place] [address] Care Team Providers Care Logging Assistant Name Role Phone NIDIA BARRIENTOS Primary Care Provider NIDIA BARRIENTOS Referring Provider Assessment Encounter Date Assessment Date Assessment LastModified by Organization Details LastModified Time 09/11/2022 09/11/2022 Patient returns neck pain. He has pain in the neck interestingly does not have much interns reticular pain most of it is localized just to the neck he has been seen for shoulder pain before but and the pain in the neck does not seem to be bothering shoulder today. He has good motion of his neck neurologically he is intact strength is good reflexes symmetric. His x-rays demonstrate significant degenerative changes 4-5 in 5-6. I no fracture lesion mass is noted. My impression patient has degenerative changes of cervical spine we will try a course of anti-inflammatory medication therapy I will see him back in a month for follow-up and reassess. Discussed. For prescription drug management will try a course of Voltaren. [email or web address] Not available 09/11/2022 14:42:18 10/09/2022 10/09/2022 Patient has degenerative changes of the cervical spine. He has got some relief from the anti-inflammatory medication however I note that he is on Plavix so we will stop that and for prescription drug management place him on prednisone for pain and inflammation. He will continue with therapy. We will also begin get an MRI scan to evaluate the severity of the changes. Fortunately he does not have too much in way of radicular symptoms at this time. [email or web address] Not available 10/09/2022 14:05:17 11/05/2022 11/05/2022 Patient returns cervical stenosis. He presents with an MRI scan. I reviewed the pictures in the report the patient in detail and agree with the reading. He has fairly significant stenosis at C4-5 and 5 6 this would be consistent with the pain that he has. He has tried physical therapy anti-inflammatory medication cortisone exercise and time. Next step will try epidural injection see if this helps. I told him if it just does not work he has had for potential surgical intervention we discussed this in detail. [email or web address] Not available 11/05/2022 11:30:09 Plan of Treatment Reminders Order Date Submit Date Provider Last Modified By Organization Details Last Modified Time Details Appointments None recorded. Lab None recorded. Referral pain management referral - please contact patient to schedule 2022 023 VANDANA Mckeon MD, [address], [place], [address], 14:56:48 physical therapist referral - please contact patient to schedule 2022 023 [facility], [address], [place], [address], 16:10:36 Procedures None recorded. Surgeries None recorded. Imaging MRI, cervical spine, w/o contrast - please contact patient to schedule.. .please provide patient with a disc 2022 023 RADHA Escoto (Radiology), [address] [facility] , [place], [address], 10:14:56 XR, cervical spine, 1 view 2022 023 [email or web address] [facility] [facility], [address], [place], [address], 14:53:10 Medication Orders prednisone 10 mg tablets in a dose pack 2022 023 [email or web address] 58 [facility] #[id number], [address] [place], [address], 14:05:33 diclofenac sodium 75 mg tablet,del ayed release 2022 023 [email or web address] 58 [facility] #[id number], [address] [place], [address], 14:43:18 Patient TargetsNo targets recorded. Patient InstructionsNo instructions recorded. Reason for Referral Physical Therapist Referral for Neck pain please contact patient to schedule Referring Physician: Magdaleno Herrera, Orthopedic Surgery, Encounter Date: 09/11/2022 Pain Management Referral for Spinal stenosis in cervical region please contact patient to schedule Referring Physician: Magdaleno Herrera Orthopedic Surgery, Encounter Date: 11/05/2022 Results Created Date Observation Date Name Description Value Unit Range Abnormal Flag Note LastModifiedBy Organization Detail LastModifiedTime 04/11/20 21 XR, shoul chino No observ ation record ed. [id number] [facility] [place] [address] [facility] [address], [place], [address], 07/18/2022 13:33:11 09/12/19 23 XR, cervi jayne spine , 1 view No observ ation record ed. [email or web address] [facility] [place] [address] [facility] [address], [place], [address], 09/11/2022 14:41:03 11/09/19 23 MRI, cervi jayne spine , w/o contr ast No observ ation record ed. [email or web address] [place] [facility] (Radiology) [address] [facility] , [place], [address], 11/08/2022 10:14:56 Result Notes None recorded. Problems Name Problem SNOMED Code Status Onset Date Resolution Date Notes Provider Name and Address Organization Details Recorded Time Injury of lower limb 903708741 Active Not Available [facility] 3 13:30:23 Partial thickness rotator cuff tear 098198370 Active 021 Not Available [facility] 3 13:30:23 Neck pain 72445723 Active [address], [facility] 3 14:13:26 Spinal stenosis in cervical region 44342533 Active 023 Magdaleno Herrera MD [address] [facility] [address], [place], [address] , [facility] 3 14:41:22 Problem Notes None recorded. Procedures Surgical History Date Name Laterality Status Provider Name and Address Organization Details Recorded Time procedure on shoulder completed Not Available [facility] 07/18/2022 13:29:44 Cardiac Stent Placement completed Not Available [facility] 07/18/2022 13:29:44 lobectomy of lung completed Not Available [facility] 07/18/2022 13:29:44 Imaging Results Imaging Date Name Status LastModified by Organiz ation Details LastModified Time 04/11/2021 XR, shoulder completed [id number] 026 [facility] [place] [address] [facility] [address], [place], [address], 07/18/2022 13:33:11 09/11/2022 XR, cervical spine, 1 view completed [email or web address] [facility] [place] [address], [place], [address], 09/11/2022 14:41:03 11/08/2022 MRI, cervical spine, w/o contrast completed [email or web address] [facility] (Radiology) [address] [facility] [place] [place], [address], 11/08/2022 10:14:56 Procedure Notes None recorded. Medical Equipment None Reported. Allergies No known drug allergies Medications Name Sig Start Date Stop Date Status Note LastModified by Organization Details LastModified Time prednisone 10 mg tablet PLEASE SEE ATTACHED FOR DETAILED DIRECTION S active Not Available Not Available No t Available clindamycin HCl 300 mg capsule TAKE 1 CAPSULE 3 TIMES A DAY BY MOUTH UNTIL GONE 11/05 completed Not Available Not Available Not Available metoprolol succinate ER 50 mg tablet,exte nded release 24 hr 11/05 completed Not Available Not Available Not Available bupivacaine HCl 0.5 % (5 mg/mL) injection solution Take 20 mg by injection route. 11/05 completed Not Available Not Available Not Available clopidogrel 75 mg tablet TAKE 1 TABLET BY MOUTH EVERY OTHER DAY active Not Available Not Available No t Available triamcinolo ne acetonide 0.1 % topical cream 11/05 completed Not Available Not Available Not Available prednisone 10 mg tablets in a dose pack Take 1 tab by mouth, 3 times a day for 3 daysTake 1 tab by mouth 2 times a day for 2 daysTake 1 tab by mouth once a day for 1 day 2022 active Not Available Not Available Not Avai lable Kenalog 10 mg/mL suspension for injection In office injection administe red by the provider 05/30 completed NDC: 0003- 0494- 20 Not Available Not Available Not Available simvastatin 20 mg tablet TAKE 1 TABLET BY MOUTH EVERY DAY IN THE EVENING active Not Available Not Available No t Available diclofenac sodium 75 mg tablet,lola yed release TAKE 1 TABLET BY MOUTH TWICE A DAY 2022 active Not Available Not Available Not Avai lable losartan 100 mg tablet active Not Available Not Available Not Available tadalafil 5 mg tablet TAKE 1 TABLET BY MOUTH ONCE DAILY NEEDED 11/05 completed Not Available Not Available Not Available sildenafil (pulmonary hypertensio n) 20 mg tablet TAKE 3 TO 5 TABLETS BY MOUTH 30 MINUTES TO 1 HOUR PRIOR TO SEXUAL ACTIVITY NEEDED active Not Available Not Available No t Available lidocaine (PF) 10 mg/mL (1 %) injection solution In office injection administe red by the provider 05/30 completed NDC: 0409- 4276- 17 Not Available Not Available Not Available Xarelto 20 mg tablet 11/05 completed Not Available Not Available Not Available Paxlovid 300 mg (150 mg x 2)-100 mg tablets in a dose pack TAKE 2 NIRMATREI VIR AND 1 RITONAVIR MORNING AND EVENING FOR 5 DAYS 11/05 completed Not Available Not Available Not Available Vitals Date Recorded Body mass index (BMI) Body height Body weight Provider Name and Address Organization Details Last Updated DateTime 04/11/2021 30.7 kg/m2 180.34 cm 90007.32 g Not Available [facility] 13:30:10 Date Recorded Body mass index (BMI) Body height Body weight Provider Name and Address Organization Details Last Updated DateTime 05/30/2021 30.7 kg/m2 180.34 cm 08295.32 g Not Available Julianna redman 07/18/2022 13:30:10 Date Recorded Body height Body mass index (BMI) Body weight Provider Name and Address Organization Details Last Updated DateTime 09/11/2022 180.34 cm 29.3 kg/m2 97435.4 g Sheryl Estrada [facility] [employer] [facility] 09/11/2022 14:11:44 Date Recorded Body height Body mass index (BMI) Body weight Provider Name and Address Organization Details Last Updated DateTime 10/09/2022 177.8 cm 30.1 kg/m2 92100.4 g Sheryl Estrada Yuval [facility] [employer] [facility] 10/09/2022 13:52:50 Date Recorded Body height Body mass index (BMI) Body weight Provider Name and Address Organization Details Last Updated DateTime 11/05/2022 180.34 cm 28.6 kg/m2 66029.44 g Sheryl Estrada [facility] [employer] [facility] 11/05/2022 09:31:03 Social History Question Answer Notes LastModified by Organizat ion Details LastModified Time Tobacco Smoking Status Never Smoker Nicole amanda [facility] [employer] [facility] 11/05/2022 09:21:07 What Is Your Level Of Alcohol Consumption? Moderate [id number] Information not available 07/18/2022 Sex: Unknown Functional Status None recorded. Mental Status None recorded. Family History Relationship Description Onset Age of this Age Resolved Age Notes LastModified by Organization Details LastModified Time Father Heart disease [id number] Not available 07/18/2022 13:29:45 Mother Heart disease [id number] Not available 07/18/2022 13:29:45 Medical History Condition Response BLINDNESS N KIDNEY STONES N MRSA N CARPAL TUNNEL SYNDROME N LUNG DISEASE/DISORDER N HISTORY OF DRUG ABUSE N RADIATION / CHEMOTHERAPY N COPD N SPORTS INJURY N ANKLE PAIN N BLOOD DISEASES N SCHIZOPHRENIA N SHINGLES N SHOULDER PAIN N BOWEL PROBLEMS N DEPRESSION (INCLUDING POST ) N STROKE/TIA N ULCERS N KNEE PAIN N BENIGN PROSTATIC HYPERPLASIA N OBESITY N GERD/NAUSEA N ANEURYSM N URINARY/BLADDER/KIDNEY PROBLEMS N CORONARY ARTERY DISEASE (CAD) N ADDICTION CONCERNS N USE OF BLOOD THINNERS N SKIN PROBLEMS N EMPHYSEMA N MUSCLE,JOINT OR BONE PROBLEMS N DVT N STOMACH ULCERS N BLOOD CLOTS N USE OF NSAIDS N CONCUSSION OR SPINAL TRAUMA N NEUROPATHY N AIDS/HIV N FRACTURES N HYPERTENSION N ELBOW PAIN N TOURETTE'S N Metal allergy N ANXIETY DISORDER N BLOOD TRANSFUSION N ANEMIA/BLOOD DISORDER N BIPOLAR DISORDER N BRONCHITIS N OSTEOARTHRITIS N TUBERCULOSIS N FOOT PROBLEM N HEART VALVE DISORDERS N ALLERGIES/HAYFEVER N SOFT TISSUE INJURY N INFECTIOUS DISEASE N HEART ARRHYTHMIA N INSOMNIA N HIGH CHOLESTEROL / HYPERLIPIDEMIA N RHEUMATOID ARTHRITIS N EDEMA N CHRONIC PAIN SYNDROME N CAROTID BLOCKAGE N BACK / NECK PROBLEMS N HAVE YOU BEEN HOSPITALIZED OR SEEN IN [facility] IN THE PAST YEAR ? N BURSITIS N HERNIATED DISC N DIALYSIS N FIBROMYALGIA N OSTEOPOROSIS N ARTHRITIS N NO SIGNIFICANT PAST MEDICAL HISTORY N PERIPHERAL NEUROPATHY N DIABETES, TYPE N HEARTBURN / REFLUX N HEPATITIS / LIVER DISEASE N GOUT N ALZHEIMER'S DISEASE N SLEEP DISORDER N HERPES N HEADACHES/MIGRAINES N SEIZURES/EPILEPSY N VASCULAR DISEASE N Blood Disorder N HIP PAIN N DIZZINESS N HEAD TRAUMA OR INJURY N HEART DISEASE/HEART PROBLEMS N MULTIPLE SCLEROSIS N CANCER: SPECIFY N CARDIAC ARRHYTHMIA N ANESTHESIA COMPLICATIONS N ATRIAL FIBRILLATION N AUTOIMMUNE DISEASE N Past Encounters Encounter ID Performer Location Encounter Start Date Encounter Closed Date Diagnosis/Indication Diagnosis SNOMED-CT Code Diagnosis ICD10 Code Diagnosis Note [id number] [facility] [place] [address] [place] [address] 04/11/2021 00:00:00 04/11/2021 17:03:08 [id number] [facility] [place] [address] [place] [address] 05/30/2021 00:00:00 05/30/2021 15:37:48 [id number] Magdaleno Herrera MD [facility] [place] [address] [place] [address] 09/11/2022 13:46:49 09/11/2022 14:53:10 Partial thickness rotator cuff tear 448340978 M75.101 Neck pain 85628597 M54.2 Spinal austen nosis in cervical region 24942147 M48.02 [id number] Magdaleno Herrera MD [facility] [place] [address] [place] [address] 10/09/2022 13:47:47 10/09/2022 14:21:43 Partial thickness rotator cuff tear 220937498 M75.101 Neck pain 02975291 M54.2 Spinal austen nosis in cervical region 42303783 M48.02 [id number] Magdaleno Herrera MD [facility] [place] [address] [place] [address] 11/05/2022 09:19:46 11/05/2022 11:12:09 Neck pain 61795998 M54.2 Partial th ickness rotator cuff tear 841164784 M75.101 Spinal austen nosis in cervical region 63115349 M48.02 Health Concerns Section Related Observation LastModified by Organization Detai ls LastModified Time None Recorded Concern Status LastModified by Organization Details LastModified Time None Recorded Advance Directives Directive None Recorded Payers Encounter Date Sequence Insurance Name Policy Number Policy Vargas Covered Member ID Vargas Member ID Guarantor Name 09/11/2022 1 MEDICARE B: [facility] e Health [employer] MEDICARE Levi Rebekah Agnieszka Alanis [id number] Levi Aaron 09/11/2022 2 [employer] (MEDICARE SUPPLEMENT) Levi Aaron [id number] Levi Aaron 10/09/2022 1 MEDICARE B: [facility] e Health [employer] MEDICARE Levi Rebekah Agnieszka Alanis [id number] 5 Levi Aaron 10/09/2022 2 [employer] (MEDICARE SUPPLEMENT) Levi Aaron [id number] Levi Aaron 11/05/2022 1 MEDICARE B: [employer] - e Health [employer] MEDICARE Levi Rebekah Agnieszka Alanis [id number] 5 Levi Aaron 11/05/2022 2 [employer] (MEDICARE SUPPLEMENT) Levi Aaron [id number] Levi Aaron Notes Date Note Type Note Provider Name and Address Organization Details Recorded Time 04/11/2021 text/html ShoulderReported bypatient.Hand Dominance:right Location:anterior; lateral Quality:throbbing; frequent Severity:moderate Timing:recurrent; occasional Duration:continuous since onset Aggravating Factors:pushing/pulli ng; throwing; damp weather Alleviating Factors:rest; elevation; stretching; NSAIDs Associated Symptoms:no weakness; no numbness; no tingling; no redness; no ecchymosis; no catching/locking; no popping/clicking; no buckling; no grinding; no instability; no radiation down arm; no drainage; no fever; no chills; no weight loss; no change in bowel/bladder habits;swelling;warmt h Not Available [facility] 04/11/2021 17:03:08 05/30/2021 text/html ShoulderReported bypatient.Hand Dominance:right Location:anterior; lateral Quality:throbbing; frequent Severity:moderate Timing:recurrent; occasional Duration:continuous since onset Aggravating Factors:pushing/pulli ng; throwing; damp weather Alleviating Factors:rest; elevation; stretching; NSAIDs Associated Symptoms:no weakness; no numbness; no tingling; no redness; no ecchymosis; no catching/locking; no popping/clicking; no buckling; no grinding; no instability; no radiation down arm; no drainage; no fever; no chills; no weight loss; no change in bowel/bladder habits;swelling;warmt h Not Available [facility] 05/30/2021 15:37:48 09/11/2022 text/html C-spineReported bypatient.Location:po sterior; deep Quality:throbbing; frequent Severity:moderate Timing:chronic; recurrent Context:lifting; twisting; overuse Alleviating Factors:lying down; ice; rest; exercise; stretching; NSAIDs Aggravating Factors:lifting; carrying; exercise Associated Symptoms:no numbness; no tingling; no redness; no warmth; no ecchymosis; no catching/locking; no popping/clicking; no buckling; no grinding; no instability; no radiation down arm; no drainage; no fever; no chills; no weight loss; no change in bowel/bladder habits;weakness;swell rony Herrera MD [address] [place] [address], [address], [facility] 09/11/2022 14:43:14 10/09/2022 text/html Patient returns neck pain. He has made some improvement with the medicine and therapy but remains fairly symptomatic he is worried about the crunching it makes the fact that it continues to hurt. Magdaleno Herrera MD [address], [place], [address], [employer] [facility] 10/09/2022 14:05:30 11/05/2022 text/html Patient returns neck and arm pain. He has comes back after an MRI scan. He has had some relief from the treatment today included the prednisone therapy. However he still symptomatic. He has not reached his treatment goals. Magdaleno Herrera MD [address], [place], [address], [facility] 11/05/2022 11:30:49
--- OUTSIDE RECORDS SUMMARY | 2024-09-03 00:59 | XMS_ITS | Continuity of Care Document ---
Author Organization [facility] Address [address] [place] [address] Phone Care Team Providers Care Space Operations Officer Name Role Phone Vipul Carrillo MD Unavailable Unavailable Allergies, Adverse Reactions, Alerts Substance Reaction Status Criticality No Known Allergies Active No Inform ation Medications Medication Instructions Dosage Effective Dates (start - stop) Status Comments losartan 100 mg tablet take 1 tablet by oral route every day 100 MG - Active metoprolol succinate ER 50 mg tablet,extended release 24 hr take 1 tablet by oral route every day 50 MG - Active Xarelto 20 mg tablet take 1 tablet by or al route every day with the evening meal 20 MG - Active simvastatin 20 mg tablet take 1 tablet by oral route every day in the evening 20 MG - Active clopidogrel 75 mg tablet take 1 tablet by oral route every day 75 MG - Active omeprazole 10 mg capsule,delayed release take 2 capsule by oral route every day before a meal 20 MG - Active Vitamin C 1,000 mg tablet - Active Procedures Procedure Date OFFICE/OUTPATIENT VISIT NEW RADEX DANAE COMPL MINIMUM 2 VIEWS 020 RADEX SCAPULA COMPL RADEX SPI CRV 2/3 VIEWS OFFICE/OUTPATIENT VISIT NEW Advance Directives Directive Yes / No Effective Date File Name No Information Encounters Encounter Description Practice Location Reason(s) For Visit Diagnoses Date Provider Providers Copied on Encounter OFFICE/OUTPA TIENT VISIT NEW [facility], [address], [place], [address], [place] tel:[phone] [facility] Cervical radiculopathy 0 Gerardo Matthew . [address] [facility] [address], [place], [place], [id number] . tel: [phone] [facility], [address] [facility] [address], [place], [address], [place] tel:[phone] [facility] Cervical radiculopathy 0 August Adrián. [address], [place], [place], [id number] , [place]. tel: [phone] OFFICE/OUTPA TIENT VISIT NEW [facility], [address] [facility] [address], [place], [address], [place] tel:[phone] [facility] Pain in right shoulderBody mass index (BMI) 29.0-29.9, adultCervicalg iaCervical radiculopathyR ight arm numbness 0 Mata Doylee. [address], [place], [place], [id number] , [place]. tel: [phone] Referring Provider: Cristino Lay, [address] [place] [address], [place], [address]. tel:[phone] [facility], [address] [facility] [address], [place], [address], [place] tel:[phone] [facility] No Information 0 Mata Doylee. [address], [place], [place], [id number] , . tel: [phone] Family History Family Member Type Diagnosis Age At Onset Father Problem Heart disease Father Problem hypertension Payers Payer name Insurance type Covered alliance party ID Authorgabriellaa mattinithin(s) [employer] Access PPO E2 OT [id number] Social History Type Description Quantity Date Captured Comments Alcohol Use Details Unknown Caffeine Use Details Unknown Tobacco Use Status No Information Smoking Status No Information Sex Male Chief Complaint And Reason For Visit No Information Reason For Referral Reason For Referral No Information Plan Of Treatment Date Type Action Status Referral Ordered: MRI SPI CANAL&CNTS CRV C-MATRL Bilateral spine, cervical Appointment date/timeframe: 10/27/2019 ordered Referral Ordered: RADEX SCAPULA COMPL RT ordered Referral Ordered: RADEX SPI CRV 2/3 VIEWS ordered Referral Ordered: RADEX DANAE COMPL MINIMUM 2 VIEWS RT ordered Referral Ordered: CT CRV SPI C-MATRL Bilateral spine, cervical ordered History Of Present Illness Encounter Date Complaint History Of Prese nt Illness No Information Functional Status Date Functional Assessmen t No Information Instructions Date Instruction Additional Infor mation Giving encouragement to exercise Related to Body mass index (BMI) 29.0-29.9, adult Assessments Type Assessment Date assessment Cervical radiculopathy 20 Patient Care Teams Name Effective Dates (start - stop) Status Members No Information
--- OUTSIDE RECORDS SUMMARY | 2024-09-03 00:59 | XMS_ITS | Clinical Summary ---
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 Name Role Phone Cristino Nunez MD Primary Care Provider [phone] Allergies No known active allergies Medications multivitamin [...] 5 mg tabletIndication s:Coronary artery disease involving [place] coronary artery of [place] heart without angina pectoris,Paroxys mal SVT (supraventricula r tachycardia),Ess ential hypertension Take 1 tablet (5 mg total) by mouth daily 30 tablet 11 5 08/21/19 26 Active ibuprofen 200 mg tab/cap Take 1 tablet/capsul e (200 mg total) 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 Continue clopidogrel. Assessment & Plan (07/09/2019 12:33 PM DIRECTOR OF BUSINESS OPERATIONS): Asymptomatic. He is on clopidogrel which he should continue. He is taking it every other day, and I think this is satisfactory. Assessment & Plan (11/06/2018 6:06 PM CDT): No symptoms of myocardial ischemia. Continue clopidogrel. Assessment & Plan (10/09/2018 11:12 AM CDT): No symptoms to suggest myocardial ischemia. Normal myocardial perfusion study in 2015. Assessment & Plan (10/31/2017 3:43 PM CDT): Doing well, with no symptoms of myocardial ischemia. Continue dual anti-platelet therapy. Assessment & Plan (10/29/2016 7:21 PM CDT): Asymptomatic. Continue anti-platelet therapy. Essential hypertension 10/29/2016 Assessment & Plan (09/16/2020 11:42 AM CDT): Blood pressure is adequately controlled on current regimen. No change was made. Assessment & Plan (07/09/2019 12:33 PM DIRECTOR OF BUSINESS OPERATIONS): Blood pressure is adequately controlled on current [...] made. Assessment & Plan (07/09/2019 12:34 PM DIRECTOR OF BUSINESS OPERATIONS): On chronic lipid lowering therapy with good [...] control. No changes made. Lung mass 10/12/2009 Encounters Date Type Department Care Team Description 08/20/2024 2:15 PM CDT Office Visit [facility] Cardiology [address] [place] [phone] Mario Dietrich MD Coronary artery disease involving [place] coronary artery of [place] heart without angina pectoris (Primary Dx); Paroxysmal SVT (supraventricular tachycardia); Essential hypertension; Pure hypercholesterolemia; BILLIE (obstructive sleep apnea) 08/20/2024 Telephone [facility] [address] [place] [phone] Mario Dietrich MD 08/14/2024 Telephone [facility]iology [address] [place] [phone] Mario Dietrich MD from Last 3 Months Immunizations Immunization Administration Dates Next Due Influenza, Quadrivalent, Spl it, Preservative Free, Intramuscular 02/28/2021 Surgical History Surgery Date Site/Laterality Comments OTHER SURGICAL HISTORY Coronary Artery [id number]: SINUS SURGERY 05/20/2011 - 05/19/2012 Sinus Surgery CAROTID STENT x 5 LUNG REMOVAL, PARTIAL Right Middle lobe ANGIOPLASTY 2004 Medical History Medical History Date Comments Hx Other Medical 2009 Coronary Artery [id number] Atrial fibrillation (HCC) Hyperlipidemia Hypertension Sleep apnea Chest discomfort Arthritis 2020 Heart disease 2005 Family History Medical History Relation Name Comments Alzheimer's disease Father Dg Aaron Arthritis Father Dg Aaron Coronary artery disease Father Dg Aaorn Toney nary Artery Disease; Heart disease Father Dg Aaron Stent Father Dg Aaron Coronary Stent Placement; Alzheimer's disease Mother Shila Aaron Arthritis Mother Shilalise Aaron Coronary artery disease Mother Shila Aaron Toney nary Artery Disease; Stent Mother Shila Aaron Coronary Stent Placement; Relation Name Status Comments Father Dg Aaron Mother Shila Aaron Social History Tobacco Use Types Packs/Day Years [...] on file Legal Sex Male 11:29 PM DIRECTOR OF BUSINESS OPERATIONS Gender Identity Male 10/10/2023 4:15 PM CDT Sexual Orientation Straight 10/10/2023 4: 15 PM CDT Obstetrics History Last Filed Vital Signs Vital Sign Reading [...] 08/20/2024 2:07 PM CDT Plan of Treatment Health Maintenance Due Date Last Done Comments Colon Cancer Screening-Colonoscopy 1956 Depression Screening 1956 Fall Risk Assessment 1956 Hepatitis C Screening 1956 Prostate Cancer Screening-PSA 1956 Hepatitis B Screening 1974 Pneumococcal vaccine 65+ (1 of 1 - PCV) 2006 Zoster Vaccine (1 of 2) 2006 Abdominal Aortic Aneurysm (A AA) Screen 2021 Well Visit 65+ 2021 DTaP/Tdap/Td Vaccine (2 - Td or Tdap) 01/26/2026 01/27/2016 Influenza Vaccine Completed 01/29/2024, , 02/04/2020, Additional history exists Medical Devices Implanted Type Area Shank Threader Device Identifier Shelf Expiration Date Model / Serial / Lot Cardiac Stent X 5 Stent Heart Procedures Procedure Name Priority Date/Time Associated Diagnosis Comments ELECTROCARDIOGRAM REPORT Routine 025 3:59 PM CDT Coronary artery disease involving [place] coronary artery of [place] heart without angina pectoris POCT LIPID PANEL Routine 08/20/2024 3:13 PM CDT Coronary artery disease involving [place] coronary artery of [place] heart without angina pectoris Paroxysmal SVT (supraventricular [...] Final Result from Last [address] [facility] MEDICARE RAILROAD MEDICARE [facility] Care Teams Before And After School Daycare Worker Relationship Specialty Start Date End Date Cristino Nunez MD [address] [place] [address] PCP - General Family Medicine 10/31/17
[2024-09-03 07:29] LABS: Basophils Absolute Auto 0.1 K/mm3 (0.0-0.1); Basophils Percent Auto 1.7 % (0.2-1.2); Eosinophils Absolute Auto 0.2 K/mm3 (0-0.3); Eosinophils Percent Auto 2.9 % (0-4.4); Hematocrit 43.3 % (42.0-52.0); Hemoglobin 14.7 g/dL (14.0-18.0); Immature Granulocyte Absolute 0.01 K/mm3 (0.00-0.031); Immature Granulocyte Percent A 0.2 % (0-0.5); Lymphocytes Absolute Auto 1.95 K/mm3 (0.9-3.2); Lymphocytes Percent Auto 29.9 % (18.3-44.2); Mean Corpuscular HGB Conc 33.9 g/dl (32-36); Mean Corpuscular Volume 88.4 fl (80-100); Monocytes Absolute Auto 0.5 K/mm3 (0.1-0.6); Monocytes Percent Auto 8.1 % (2.6-8.5); Neutrophils Absolute Auto 3.7 K/mm3 (1.3-6.7); Neutrophils Percent Auto 57.2 % (45.5-73.1); Platelet Count Result 213 k/mm3 (150-375); Red Cell Distribution Width 12.5 % (11.5-14.5); White Blood Count 6.5 K/mm3 (4.5-10.0)
[2024-09-03 07:38] LABS: Anion Gap 9 mmol/L (4-12); Blood Urea Nitrogen 21 mg/dL (9-20); Carbon Dioxide 22 mmol/L (22-30); Chloride 108 mmol/L (98-107); Estimated CRCL calculation 75 ml/min; Estimated Glomerular Filt Rate > 60; Glucose 98 mg/dL (65-110); Sodium 139 mmol/L (137-145)
--- NOTE | 2024-09-03 08:25 | WPDHPUPDATE1 ---
History and Physical Update Update Date/Time: 09/03/24 08:25 History and Physical has been reviewed, including an updated exam of the patient. There are NO changes in the patient's condition. Risks, benefits, and alternatives have been discussed and questions answered. Patient agrees to proceed with procedure.
--- NOTE | 2024-09-03 08:25 | WPDMODSED ---
Moderate Sedation Note-Pt Data Patient Data Allergies Allergy/AdvReac Type Severity Reaction Status Date / Time No Known Allergies Allergy Verified 09/02/24 10:27 Home Medications ?Medication ?Instructions ?Recorded ?Confirmed ?Type Adults Multivitamin 1 tab-cap PO DAILY 08/15/20 09/02/24 History clopidogrel 75 mg tablet 75 mg PO HS 08/15/20 09/02/24 History nitroglycerin 0.4 mg sublingual 0.4 mg sublingual Q5M PRN Chest 07/31/21 09/02/24 History tablet Pain glucosamine HCl 1,500 mg tablet 1,500 mg PO DAILY 04/05/23 09/02/24 History psyllium husk 0.4 gram capsule 0.4 g PO DAILY 08/23/23 09/02/24 History (Metamucil) simvastatin 20 mg tablet See Rx Instructions .Route 08/27/23 09/02/24 Rx .COMPLEX #90 tabs Prevagen 1 cap PO DAILY 04/21/24 09/02/24 History Super beta prostate 2 tablet PO DAILY 04/21/24 09/02/24 History losartan 100 1 tablet PO DAILY 04/21/24 09/02/24 History mg-hydrochlorothiazide 12.5 mg tablet sildenafil (pulm.hypertension) 20 20 mg PO PRN PRN Erectile 05/26/24 09/02/24 Rx mg tablet Dysfunction #100 tabs Sedation/Anesthesia: No previous sedation/anesthesia problems (including family history). 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 Also smoked Cigars. Drinks 2-3 drinks per week. No hx of drug use. Lives at home with his . Nominates his to be the individual would make medical decisions for him if he is unable. He is a full code. Smoking packs per day: 1 Smoking cigarettes per day: 20.0 Years smoked: 10 Smoking pack-years: 10.00 Smoking status: Former smoker Tobacco type: cigarettes and cigars Additional smoking assessment comments: PT ALSO SMOKED 5-6 CIGARS/DAY Alcohol intake: current Drinks per week: 3 Substance use: never Substance use type: does not use Do You Feel Safe in your Home?: Yes Lack of Transportation: No Lack of Food: Never True Current Housing: I Have Housing Concerned About Future Housing: No Difficulty Paying Gas/Electric Bills: No Difficulty Paying for Meds: No Currently Unemployed: No Education: Bachelor's Degree Difficulty w/ Childcare or Family Care: No Living arrangements: with family Occupation/Education: retired Gender identity (if verbalized by the patient): Male Sexual Orientation (if Verbalized by the Patient): Straight or Heterosexual Spiritual care concerns: No Mod Sed Physical Exam Physical Exam Pre Procedural Exam: Normal: Heart Rate and Heart Rhythm Hours since solid foods: 12 Hours since liquid intake: 12 Mallampati Classification: class II Internal Medicine - PN: Obj Da Vital Signs Vital Signs: Vital Signs - 24 hr 09/03/24 07:17 Temperature 36.1 C L Pulse Rate 50 L Respiratory Rate 16 Blood Pressure 140/84 Pulse Oximetry 96 Oxygen Delivery Room Air Labs 09/03/24 07:24 09/03/24 07:24 Labs: Laboratory Results - last 24 hr 09/03/24 07:24 WBC 6.5 RBC 4.90 Hgb 14.7 Hct 43.3 MCV 88.4 MCH 30.0 MCHC 33.9 RDW 12.5 Plt Count 213 MPV 10.0 Immature Gran % (Auto) 0.2 Neut % (Auto) 57.2 Lymph % (Auto) 29.9 [place] % (Auto) 8.1 Eos % (Auto) 2.9 Baso % (Auto) 1.7 H Lymph # (Auto) 1.95 [place] # (Auto) 0.5 Eos # (Auto) 0.2 Baso # (Auto) 0.1 Abs Immat Gran (auto) 0.01 Absolute Neuts (auto) 3.7 Absolute Nucleated RBC 0.000 Nucleated RBC % 0.0 Sodium 139 Potassium 4.0 Chloride 108 H Carbon Dioxide 22 Anion Gap 9 BUN 21 H Creatinine 0.88 Estim Creat Clear Calc 75 Estimated GFR > 60 Glucose 98 Calcium 9.0 ASA Classification/Sedation ASA Classification/Sedation ASA Class: III Emergent: No Risks: Risks, benefits and alternatives explained and patient/family accepted plan for sedation. Patient re-evaluated immediately prior to sedation.
--- NOTE | 2024-09-03 09:10 | WPDCARDPROC ---
Cardiac Cath Procedure Note Date of procedure:: 09/03/24 Performing physician:: CATHETERIZATION LABORATORY REPORT Procedure Date: 09/03/2024 Referring Physician: Dr. Dietrich Anesthesia: Versed and Fentanyl were ordered and given in my presence at 0844, procedure ended at 0858. Supervision of nurse, Lizbeth Alvarado monitored moderate sedation with Versed and Fentanyl was provided for 14 minutes. Pre-op Diagnosis: Chest Pain Post-op Diagnosis: Chest Pain Procedure(s): Left heart catheterization with coronary angiography Access Site: Right radial artery Brief History and Clinical Indications: 69-year-old man with coronary artery disease status post PCI with complaints chest pain is here to define his coronary anatomy with possible PCI. All risks, benefits and alternatives to left heart catheterization with or without percutaneous coronary intervention was discussed at length with the patient. Risk of complications including but not limited to bleeding, infection, arrhythmia, stroke, worsening kidney function, blood loss, groin hematoma, limb loss, emergency coronary artery bypass grafting, and even were discussed with the patient and all questions were answered. The patient understood and wished to proceed. Time out called, patient name, date of , medical record number, allergies, procedure performed, identify Clinical Research Manager, patient and staff member concurred with accurate data, procedure carried on. Findings: LEFT HEART CATHETERIZATION FINDINGS: 1. Left main: The left main coronary artery is widely patent without any significant obstructive disease. 2. Left anterior descending: The LAD is a large caliber vessel that supplies 1 major significant diagonal branch. The LAD itself between the 1st major diagonal and 1st major septal branch has an area of 70% stenosis and immediately after the takeoff of the septal branch, there is a focal 99% stenosis in the LAD. The 1st major diagonal branch is a moderate caliber vessel with a focal 99% stenosis in its proximal body prior to dividing into the superior and inferior branches. 3. Left circumflex: The left circumflex artery is a large caliber nondominant vessel. The proximal left circumflex has a long focal area of 70-80% stenosis before becoming a a large OM branch. Within this large OM branch, there is a 70-80% proximal stenosis. The OM branch divides into a superior and inferior branch; the superior of which is a large vessel with luminal irregularities and the inferior branch is a small-caliber vessel with diffuse 20-30% stenosis. 4. Ramus Intermedius: The ramus intermedius is a large caliber vessel that divides into a superior and inferior branch. There is a previously placed stent in the proximal vessel leading into the superior branch and within this stent, there is an area of 90% ISR. 5. Right coronary artery: The RCA is a large dominant vessel. In its midbody there is a focal 70% stenosis. In the distal RCA right at the proximal edge of the stent, there is a 80-90% stenosis and there is diffuse 50-60% stenosis within the stent itself. In the proximal PDA, there is a focal 80-90% stenosis followed by a short segment of healthy vessel and then in the previously placed RPDA stent, there is diffuse 99% ISR. The RPL branch has a focal 70% stenosis in its midbody. 6. Left ventricle: A. End-diastolic pressure 24 mmHg. B. LV gram deferred. C. No significant gradient across aortic valve on catheter pullback. 6. Opening AO pressure 120/83 and closing AO pressure 131/71 Description of Procedure: Informed consent signed and placed in the chart. Patient transferred to woods laborer room. Prepped and draped in usual sterile fashion. 2% lidocaine injected subcutaneously in right wrist area. 22-gauge venipuncture catheter used to access the right radial artery with the Seldinger technique. 6-FR slender sheath placed in right radial artery. Nitroglycerin 200mcg, Verapamil 2.5mg, and Heparin 5000U was given intraarterial through the sheath. J wire advanced under fluoroscopy 5F TIG diagnostic catheter engaged Left Main Coronary Artery. 5F TIG diagnostic catheter engaged Right Coronary Artery Multiple orthogonal angiogram obtained and reviewed 5F Pigtail diagnostic catheter crossed aortic valve to obtain LVEDP, LV angiogram deferred. Hemostasis was achieved by application of TR band. Assessment: Multivessel CAD and multivessel ISR Post Operative Condition: Stable No significant blood loss Disposition: Home Plan: CT surgery referral. Obtain a transthoracic echocardiogram [facility]
--- NOTE | 2024-09-03 10:39 | SUR.PHASEII ---
Attempted to take 3 mL of Air out bleeding noted immediately and the 3 mL of Air reinserted.
== END 2024-09-03 12:50 | disposition home or self-care (01) ==
PROVIDERS: PCP Family Medicine; Visit Provider Internal Medicine
PROC: 4A023N7 Measurement of Cardiac Sampling and Pressure, Left Heart, Percutaneous Approach (ICD-10-PCS; CPT 93452; principal; 2024-09-03 08:30)
DX: R07.9 Chest pain, unspecified (principal); I25.10 Atherosclerotic heart disease of native coronary artery without angina pectoris; I10 Essential (primary) hypertension; E78.5 Hyperlipidemia, unspecified; Z95.5 Presence of coronary angioplasty implant and graft; Z87.891 Personal history of nicotine dependence
CPT/HCPCS: 36415; 80048; 85025; 93458; C1769; C1887; C1894; J1644; J2003; J2250; J2305; J3010; J7040